=== PATIENT | female | born 1955 | race Caucasian/White ===

== ENCOUNTER 2025-03-29 04:39 | Inpatient (IN) | payer OTHER, MEDICARE ==
[~2025-03-29] VITALS: Ht 160 cm; Wt 59.6 kg
[2025-03-29] VITALS (8 sets, daily range): BP systolic 115–134; BP diastolic 57–79
[2025-03-29] MEDS ORDERED: ondansetron HCL 4 MG/2 ML VIAL IV ONE (05:00)
[2025-03-29] MEDS ORDERED: MORPHINE SULFATE 4 MG/ML VIAL IV ONE (05:00)
[2025-03-29] MEDS ORDERED: SODIUM CHLORIDE 0.9% 1,000 ML IV ONE (05:00)
[2025-03-29] MEDS ORDERED: ondansetron HCL 4 MG/2 ML VIAL ONE ×2 (05:03→10:11)
[2025-03-29 05:09] LABS: BASOPHILS 0.3 % (0.1-1.2); EOSINOPHILS 0.6 % (0.7-5.8); HEMATOCRIT 37.6 % (34.1-44.9); HEMOGLOBIN 12.6 g/dL (11.2-15.7); MCH 29.5 PG (25.6-32.2); MCHC 33.5 g/dL (32.2-35.5); MCV 88.1 fL (79.4-94.8); MONOCYTES 5.5 % (4.7-12.5); PLATELET COUNT 303 K/uL (182-369); RBC 4.27 M/uL (3.93-5.22)
[2025-03-29] MEDS ORDERED: PIPERACILLIN/TAZOBACTAM 4.5 GM in SODIUM CHLORIDE 0.9% 100 ML IV ONE (05:15)
[2025-03-29] MEDS ORDERED: CALCIUM +D & M1 EACH PO (05:22)
[2025-03-29] MEDS ORDERED: ZESTRIL20 MG PO (05:22)
[2025-03-29] MEDS ORDERED: PRAVASTATIN SOD80 MG PO (05:22)
[2025-03-29] MEDS ORDERED: EFFEXOR XR150 MG PO (05:23)
[2025-03-29] MEDS ORDERED: VAZALORE81 MG PO (05:23)
[2025-03-29] MEDS ORDERED: TRAZODONE HCL50 MG PO (05:23)
[2025-03-29 05:24] LABS: ALBUMIN 3.7 g/dL (3.4-5.0); ALBUMIN/GLOBULIN RATIO 0.97 (1.1-2.4); ANION GAP 17.1 (7-21); BILIRUBIN, TOTAL 0.3 mg/dL (0.2-1.0); BUN/CREATININE RATIO 14.28 (6.0-28.6); CALCIUM 9.2 mg/dL (8.5-10.1); CREATININE, SERUM 0.98 mg/dL (0.55-1.02); POTASSIUM 4.1 mmol/L (3.5-5.1); PROTEIN, TOTAL 7.5 g/dL (6.4-8.2)
[2025-03-29] MEDS ORDERED: LEVOTHYROXINE112 MC1 PO (05:24)
[2025-03-29] MEDS ORDERED: THIAMINE HCL100 MG PO (05:24)
[2025-03-29] MEDS ORDERED: OMEPRAZOLE20 MG PO (05:24)
[2025-03-29] MEDS ORDERED: MAGNESIUM SULFATE 2 GM/50 ML BAG IV ONE (06:00)
[2025-03-29 06:27] LABS: BILIRUBIN, URINE NEGATIVE (negative); BLOOD/HGB, URINE TRACE-L (Negative); KETONE, URINE NEGATIVE (Negative); LEUK ESTERASE, URINE NEGATIVE (negative); NITRITE, URINE NEGATIVE (negative)
[2025-03-29 06:47] LABS: BACTERIA, URINE NONE SEEN /hpf (negative); CASTS, URINE NONE SEEN \\lpf; COLLECTION TYPE, URINE CLEAN CATCH; CRYSTALS, URINE NONE SEEN (0-1+); EPITHELIAL CELLS, URINE OCCASIONAL /lpf (0-1+); REFLEX CULTURE, URINE No (No); WHITE BLOOD CELLS, URINE 0-1 /HPF (0-5)
[2025-03-29] MEDS ORDERED: ACETAMINOPHEN 650 MG SUPP PR PRN (08:30)
[2025-03-29] MEDS ORDERED: ACETAMINOPHEN 325 MG TAB PO PRN (08:30)
[2025-03-29] MEDS ORDERED: MORPHINE SULFATE 4 MG/ML VIAL IV PRN (08:30)
[2025-03-29] MEDS ORDERED: DEXTROSE 5% - LACTATED RINGERS 1,000 ML IV SCH (08:30)
[2025-03-29] MEDS ORDERED: ondansetron HCL 4 MG/2 ML VIAL IV PRN ×2 (08:30→11:45)
[2025-03-29] MEDS ORDERED: HEParin SOD (PORCINE) 5,000 UNIT/ML SDV SUB-Q SCH (09:00)
[2025-03-29] MEDS ORDERED: PANTOPRAZOLE SODIUM 40 MG/10 ML VIAL IV SCH (09:00)
[2025-03-29] MEDS ORDERED: fentaNYL citrate 100 MCG/2 ML VIAL ONE (10:10)
[2025-03-29] MEDS ORDERED: propofoL 200 MG/20 ML VIAL ONE (10:11)
[2025-03-29] MEDS ORDERED: dexmedeTOMIDine HCl 200 MCG/2 ML VIAL ONE (10:11)
[2025-03-29] MEDS ORDERED: LIDOCAINE HCL 2% 5 ML SDV ONE (10:11)
[2025-03-29] MEDS ORDERED: DEXAMETHASONE SOD PHOS 4 MG/ML VIAL ONE (10:11)
[2025-03-29] MEDS ORDERED: ACETAMINOPHEN 1,000 MG/100 ML VIAL ONE (10:21)
[2025-03-29] MEDS ORDERED: LIDOCAINE HCL 1% 30 ML SDV ONE (10:31)
[2025-03-29] MEDS ORDERED: BUPIVACAINE HCL 0.5% 30 ML VIAL ONE (10:31)
[2025-03-29] MEDS ORDERED: ROCURONIUM BROMIDE 50 MG/5 ML SYR ONE (10:56)
[2025-03-29] MEDS ORDERED: ePHEDrine sulfate 50 MG/ML AMP ONE (11:05)
[2025-03-29] MEDS ORDERED: VASOPRESSIN 20 UNITS/ML VIAL ONE (11:09)
[2025-03-29] MEDS ORDERED: SEVOFLURANE 250 ML BTL INH ONE (11:24)
[2025-03-29] MEDS ORDERED: KETOROLAC TROMETHAMINE 30 MG/ML VIAL IV PRN (11:45)
[2025-03-29] MEDS ORDERED: fentaNYL citrate 50 MCG/ML SDV IV PRN (11:45)
[2025-03-29] MEDS ORDERED: IBLOOD GLUCOSE TEST STRIP 1 EA TEST VI PRN (11:45)
[2025-03-29] MEDS ORDERED: NALOXONE HCL 0.4 MG SYR IV PRN (11:45)
[2025-03-29] MEDS ORDERED: SUGAMMADEX SODIUM 200 MG/2 ML ML ONE (11:45)
--- NOTE | 2025-03-29 12:25 | NUR ---
03/29/25 1225 Estefania Chandra 1211- PT PRESENTS TO PACU, SEMI CASRTEJON POSITION. REACTIVE TO STIMULUS, BUT NOT AWAKE. BREATHING EVEN AND NON LABORED, O2 AT 6L PER MASK. ABD SOFT, NON DISTENDED. 3 LAP SITES WITH DERMABOND AND NO DRAINAGE. LR INFUSING TO LAC IV. ALL MONITORS IN PLACE. 1220- PT WAKES TO VERBAL STIMULI, ONLY COMPLAINT IS NECK PAIN RELIEVED WITH PILLOW POSITIONING. DENIES ABD PAIN OR NAUSEA. PT FALLS BACK TO SLEEP, MOVED TO ROOM AIR, INTERMITTENT SNORING BUT BREAHTING EVEN AND NON LABORED.
[2025-03-29] MEDS ORDERED: HYDROCODONE/ACETA 5/325 TAB PO PRN (13:00)
[2025-03-29] MEDS ORDERED: KETOROLAC TROMETHAMINE 15 MG/ML VIAL IV PRN (13:00)
--- NOTE | 2025-03-29 13:13 | NUR ---
PT TO FLOOR WITH JULIO SANCHEZ. PT AWAKE AND ABLE TO AMB TO BED. REPORTING MILD NECK AND ABD PAIN. HOT PACK APPLIED TO NECK AND COLD PACK TO ABD. CALL LIGHT IN REACH. GIVEN ICE WATER. CPOX APPLIED. VS STABLE.
[2025-03-29] MEDS ORDERED: PIPERACILLIN/TAZOBACTAM 4.5 GM in SODIUM CHLORIDE 0.9% 100 ML IV SCH (14:00)
--- NOTE | 2025-03-29 14:01 | NUR ---
LAP SITES X3 TO ABD WITH DERMABOND CDI. ICE PACK TO ABD AND NECK FOR COMFORT. CPOX AND SCDS ON ORDERED. PT AWAKE AND ALERT IN ROOM AT THIS TIME. NO REQUESTS. CALL LIGHT WITHIN REACH.
--- NOTE | 2025-03-29 14:28 | NUR ---
UR CLINICAL REVIEW: 2 MN FOR VERSALUS-PER CHANGE ROOM ATTENDANT MEETS INPT FOR ACUTE APPY WITH NEED FOR PAIN CONTROL AND IV ABX MEDICARE INPT 03/29/25 @ 0823 ORDER MATCHES REG NO AUTH REQUIRED PER MEDICARE GUIDELINES DISCHARGE TO HOME WHEN STABLE
--- NOTE | 2025-03-29 16:08 | NUR ---
PT'S LAP SITES TO ABD X3 CDI. PT RATES CURRENT PAIN 2-3/10 TO ABD AND NECK AND STATES IS TOLERABLE AT THIS TIME. CALL LIGHT WITHIN REACH.
--- NOTE | 2025-03-29 16:23 | NUR ---
PT AMBULATED TO RESTROOM WITH SBA, TOLERATED WELL. DENIED DIZZINESS OR LIGHTHEADEDNESS AND URINATED YELLOW URINE. PT BACK TO BED AND CALL LIGHT WITHIN REACH. CPOX AND SCDS ON.
--- NOTE | 2025-03-29 16:33 | NUR ---
medications reconciled with patient
--- NOTE | 2025-03-29 16:59 | NUR ---
PT SITTING UP IN BED EATING HER CLEAR LIQUID DINNER. PT TOLERATING WELL. STATES PAIN TO NECK AND ABD IS 3/10 AND TOLERABLE AT THIS TIME. CPOX ON, PT ON AND 02 SATS 96%. ICE PACK TO NECK AND ABD FOR DISCOMFORT. NO REQUESTS AT THIS TIME. CALL LIGHT WITHIN REACH.
--- NOTE | 2025-03-29 18:33 | NUR ---
PT GIVEN MORPHINE ORDERED FOR PAIN TO ABD AND NECK 03/16. CALL LIGHT WITHIN REACH. NO OTHER REQUESTS AT THIS TIME.
--- NOTE | 2025-03-29 19:33 | NUR ---
CM MET WITH PATIENT REGARDING DISCHARGE PLANNING ASSESSMENT. PT PLEASANT AND COOPERATIVE WITH INTERVIEW. PT LIVES INDEPENDENTLY IN SINGLE LEVEL HOME WITH SON. SHE REPORTS THERE ARE 2-3 STAIRS TO ENTER. SHE CONTINUES TO DRIVE. 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 PT WILL START ORAL CHEMOTHERAPY THROUGH [facility] IN [facility]. ON DISCHARGE SHE WAS PROVIDED A SHOWER CHAIR, BSC, WALKER, WEDGE AND ALERT BUTTON. CM ANTICIPATES PATIENT WILL RETURN HOME UPON DISCHARGE WITHOUT NEEDS. CM WILL CONTINUE TO FOLLOW AND ASSIST WITH ANY IDENTIFIED DISCHARGE NEEDS.
--- NOTE | 2025-03-29 20:38 | NUR ---
PATIENT ASSESSMENT DONE, INJECTION DONE. PATIENT ON RA, TOLERATING CLEAR LIQUIDS. IV FLUIDS RUNNING. PATIENT UP IN BED WATCHING TV. C/O PAIN IN HER NECK, HAS BEEN USING ICE PACK OFF AND ON. DENIES HELP WITH WARMTH. PATIENT ASKING WHEN SHE CAN HAVE THE MORPHINE AGAIN. ADVISED NOT TELL 930PM. PATIENT WOULD LIKE TO WAIT UNTIL THEN, DENIES WANTING OTHER MEDICATIONS FOR PAIN. CALL LIGHT WITHIN REACH, PATIENT DENIES ANY OTHER CARES AT THIS TIME.
--- NOTE | 2025-03-29 22:08 | NUR ---
HELPED PATIENT UP TO THE BATHROOM, SBA, NO COMPLICATIONS. PAIN MEDICATION GIVEN, ANTIBIOTIC STARTED. CPOX ON, SCDS ON, BED ALARM WITHIN REACH. PATIENT IS READY TO GO TO BED. DENIES ANY OTHER CARES AT THIS TIME.
--- NOTE | 2025-03-29 23:26 | NUR ---
PATIENT CURRENTLY SLEEPING, REGULAR RESPIRATIONS NOTED.
[2025-03-30] VITALS (12 sets, daily range): BP systolic 139–158; BP diastolic 73–90
--- NOTE | 2025-03-30 00:15 | NUR ---
Pt report received from JULIO Giradlo. Pt was resting supine in bed on her right side. When I entered the room, she immediately opened her eyes and rolled partially to her back. I updated the white board and asked if there was anything she needs at this time, to which she replied, "no". As she moved again, the CPOX alarmed and the pt jumped. I explained the alarm to her and she calmed herself. Side rails up x4, call light in reach.
--- NOTE | 2025-03-30 00:43 | NUR ---
PATIENT CALLED TO USE THE BATHROOM SBA TO VOID 450ML YELLOW URINE. PATIENT IS BACK IN BED. NEW ICE PACK MADE. NO OTHER NEEDS AT THIS TIME.
--- NOTE | 2025-03-30 03:01 | NUR ---
In with pt for request for pain medication. Pt is coming back from toileting. A&O x4, reports pain in the back of her neck, states it is a 'headache' and agreed to try a hot pack for this. MSO4 4mg administered for "7 or 8" out of 10 pain in the abdomen after getting up to the bathroom.
--- NOTE | 2025-03-30 04:57 | NUR ---
PT UP TO BR WITH MINIMAL SBA TO VOID 200 ML CLEAR YELLOW URINE. GAIT STEADY. BACK TO BED, THI WELL. VS AND I&O OBTAINED. ICE PACK PROVIDED FOR ABD. NO FURTHER NEEDS. CALL LIGHT IN REACH.
[2025-03-30 05:53] LABS: BASOPHILS 0.2 % (0.1-1.2); EOSINOPHILS 0 % (0.7-5.8); HEMATOCRIT 31.5 % (34.1-44.9); HEMOGLOBIN 10.3 g/dL (11.2-15.7); LYMPHOCYTES 8.2 % (19.3-51.7); MCH 29.6 PG (25.6-32.2); MCHC 32.7 g/dL (32.2-35.5); MCV 90.5 fL (79.4-94.8); MONOCYTES 6.9 % (4.7-12.5); NEUTROPHILS 84.3 % (34.0-71.1); PLATELET COUNT 271 K/uL (182-369); RBC 3.48 M/uL (3.93-5.22)
[2025-03-30 06:10] LABS: ANION GAP 14.2 (7-21); BUN/CREATININE RATIO 10.46 (6.0-28.6); CALCIUM 8.6 mg/dL (8.5-10.1); CREATININE, SERUM 0.86 mg/dL (0.55-1.02); MAGNESIUM 2.1 mg/dL (1.8-2.4); PHOSPHORUS, INORGANIC 3.5 mg/dL (2.5-4.9); POTASSIUM 4.2 mmol/L (3.5-5.1)
--- NOTE | 2025-03-30 11:55 | NUR ---
Dr. Childs to see pt, briefly, while he is on the floor. He advised, verbally, that he will be discharging her today, gave a verbal order to advance diet as tolerated, and "please get her a walker".
--- NOTE | 2025-03-30 12:40 | NUR ---
In with pt for hourly rounding. Pt is sitting up in bed, RT Simran in with pt. Lunch tray removed, pt consumed approximately 15% of her meal (clear liquid). When offered, pt declined anything further for lunch and did not want to try any soups (she is now advance diet as tolerated to regular). Pt denies further needs at this time. Call light in reach.
--- NOTE | 2025-03-30 13:00 | NUR ---
REPORT RECIEVED FROM JULIO WADE. PATIENT SITTING UP IN BED AND IS WITHOUT ANY NEEDS AT THIS TIME. CALL LIGHT AND PERSONAL BELONGINGS ARE WITHIN REACH.
--- NOTE | 2025-03-30 14:49 | NUR ---
PATIENT MEDICATED PER EMAR. PATIENT SITTING UP IN BED WATCHING TV. PATIENT ASSISTED TO BATHROOM VIA SBA WITH THE FWW. HEAT PACK PROVIDED. SCD'S ON. PATIENT WITHOUT FURTHER NEEDS AT THIS TIME. CALL LIGHT AND PERSONAL BELONGINGS ARE WITHIN REACH.
--- NOTE | 2025-03-30 15:21 | NUR ---
ALERT AND ORIENTED IN BED. DC PLAN TO RETURN TO HOME WHEN MEDICALLY READY. NO KNOWN CM NEEDS WHEN ASKED.
--- NOTE | 2025-03-30 15:46 | NUR ---
PATIENT RESTING IN BED ON HER PHONE AND WATCHING TV. PATIENT REPORTS DECREASED IN PAIN FOR A 2/10. PATIENT WITHOUT ANY NEEDS AT THIS TIME. CALL LIGHT AND PERSONAL BELONGINGS ARE WITHIN REACH.
--- NOTE | 2025-03-30 17:52 | NUR ---
PATIENT SITTING UP IN BED WITH VISITOR AT BEDSIDE. PATIENT REPORTING 5/10 PAIN. PATIENT WITHOUT FURTHER NEEDS AT THIS TIME. CALL LIGHT AND PERSONAL BELONGINGS ARE WITHIN REACH.
--- NOTE | 2025-03-30 18:06 | NUR ---
PATIENT MEDICATED PER EMAR. IV FLUSHED WITH 10ML OF NS, DRESSING IS INTACT. LR INFUSING AT 85ML/HR CONTINUOUS. PATIENT BACK IN BED. CPOX AT BEDSIDE. FRESH ICE WATER PROVIDED. PATIENT REQUESTING TO TAKE A BREAK FROM SCD'S. PATIENT WITHOUT FURTHER NEEDS AT THIS TIME. CALL LIGHT AND PERSONAL BELONGINGS ARE WITHIN REACH.
--- NOTE | 2025-03-30 18:55 | NUR ---
PATIENT AMBULATED HALLWAYS 1.5 TIMES WITH SBA AND FWW. PATIENT REPORTED FEELING NO PAIN OR DIZZINESS WHILE WALKING. PATIENT RETURNED TO BED.
--- NOTE | 2025-03-30 19:26 | NUR ---
RECEIVED REPORT FROM JULIO BRENNAN. PT RESTING IN BED. ASSISTED TO BR, SBA FOR LINE MANAGEMENT. VOIDS WNL. CALL LIGHT WITHIN REACH.
--- NOTE | 2025-03-30 20:00 | NUR ---
PT RESTING IN BED. ASSISTED TO BR-PT REPORTS URGENCY AND DRIBBLING. PADS IN PLACE. REPORTS 3/10 ABD PAIN, PT WANTS TO WAIT UNTIL PRN TORADOL AVAILABLE AND AVOID MORPHINE. ICE PACK IN PLACE TO 3 ABD LAP SITES. LSC, DIM TO RIGHT BASE. HRR. BT HYPO, ABD SLIGHTLY TENDER. ABD SLIGHTLY DISTENDED, DENIES PASSING FLATUS. LBM 03/29. 3 LAP SITES TO ABD-LLQ LAP SITE W/ BLOODY DRNG-BANDAID APPLIED. LARGE BRUISE TO RLQ. D5LR INFUSING TO LAC IV AT 100MLS/HR. FRESH ICE WATER PROVIDED. CALL LIGHT WITHIN REACH.
--- NOTE | 2025-03-30 20:30 | NUR ---
call light answered, pt reports iv site "leaking and there is a bump". iv site appears infiltrated and leaking noted-pt has d5lr infusing. pt denies pain at iv site, no reddness noted.fluids stopped and this rn spoke to keli in telepharmacy regarding need for potential interventions before dc'ing iv site-no interventions given as far as medications prior to removing current iv. also no specific interventions r/t heat/cold compress. discussed w/ primary rn crystal-iv dc'd and catheter tip intact. pressure held and left arm elevated w/ pillow. theresa kennedy in room to start new iv.
--- NOTE | 2025-03-30 21:30 | NUR ---
PT HAS NEW IV TO RFA-D5LR RESTARTED. MEDICATED W/ PRN TORADOL FOR ABD PAIN. PT AMBULATED TO BR W/ SBA. NEW GOWN APPLIED AND NEW DRSG TO [facility] LAP SITE-KESHIA AND GRISELADEJENNIFFER FOR BLOODY DRNG NOTED.
--- NOTE | 2025-03-30 21:30 | NUR ---
PT UP USING BR IND. SPOUSE AT BEDSIDE.
--- NOTE | 2025-03-30 23:45 | NUR ---
PT SLEEPING SOUNDLY. APPEARS COMFORTABLE.
--- NOTE | 2025-03-31 01:45 | NUR ---
DX: 03/29 LAP APPY. MIN PAIN, PRN TORADOL & NORCO, WEANING IV MORPHINE USE. THI GEN DIET. NEGATIVE FLATUS. PLAN TO D/C WED03/31.
--- NOTE | 2025-03-31 03:06 | NUR ---
SLEEPING SOUNDLY. APPEARS COMFORTABLE.
[2025-03-31 05:42] VITALS: BP 166/78
--- NOTE | 2025-03-31 05:51 | NUR ---
PT UP TO BR W/ COMMUNICATIONS FIELD TECHNICIAN. NOTED BLOODY DRNG ON GOWN-LLQ LAP SITE W/ MODERATE AMT BLOODY DRNG. AREA CLEANSED AND STERI STRIPS APPLIED + GUAZE + TEGADERM. DENIES PAIN THIS AM. BT REMAIN HYPOACTIVE. DENIES FLATUS. ABD MILDLY DISTENDED, MILDLY TENDER. CALL LIGHT WITHIN REACH.
[2025-03-31 05:52] VITALS: BP 166/78
--- NOTE | 2025-03-31 06:27 | NUR ---
DR. WHITTEN NOTIFIED OF [facility] SITE ONGOING DRNG AND STERI STRIP PLACEMENT. NO NEW ORDERS. WILL SEE THIS AM.
--- NOTE | 2025-03-31 08:12 | NUR ---
Admin toradol 15mg iv at this time for reports of 3/10 abdominal pain. Patient denies passing flatus.
[2025-03-31 09:19] VITALS: BP 145/81
[2025-03-31 09:30] VITALS: BP 145/81
--- NOTE | 2025-03-31 10:35 | NUR ---
PT CALL LIGHT ON - REQUESTING TO USE BATHROOM. SBA WITH LINES/TUBES FOR SAFETY. PT AMBULATED WITH STEADY GAIT.
--- NOTE | 2025-03-31 11:06 | NUR ---
Patient reporting nausea post ambulation to bathroom. Admin zofran 8mg iv at this time. Patient reports she did not eat much this morning after receiving po pain medication. Patient encouraged to eat a snack when she can tolerate-she reports her understanding. Patient reports she has been burping lots, no flatus as of yet. Call light within reach.
[2025-03-31] MEDS ORDERED: IBUPROFEN 600 MG TAB PO PRN (13:00)
[2025-03-31 13:55] VITALS: BP 155/81
[2025-03-31 14:00] VITALS: BP 155/81
[2025-03-31] MEDS ORDERED: HYDROCODON-ACE1 EA11 PO (15:14)
[2025-03-31] MEDS ORDERED: LEVOFLOXACIN500 MG PO (15:14)
[2025-03-31] MEDS ORDERED: ONDANSETRON ODT4 MG PO (15:16)
== END 2025-03-31 16:30 | disposition home or self-care (01) | DRG 398 ==
LOC: ED 04:39 → MS 08:23
PROVIDERS: Family Medicine; ADMIT Surgery; ATTEND Surgery
PROC: 3E03329 Introduction of Other Anti-infective into Peripheral Vein, Percutaneous Approach (ICD-10-PCS; 2025-03-29)
PROC: 0DTJ4ZZ Resection of Appendix, Percutaneous Endoscopic Approach (ICD-10-PCS; principal; 2025-03-29 10:20)
DX: K35.80 Unspecified acute appendicitis (principal); C34.31 Malignant neoplasm of lower lobe, right bronchus or lung; I10 Essential (primary) hypertension; E03.9 Hypothyroidism, unspecified; F32.A Depression, unspecified; E78.00 Pure hypercholesterolemia, unspecified; F41.9 Anxiety disorder, unspecified; Z90.2 Acquired absence of lung [part of]; Z79.890 Hormone replacement therapy; Z79.82 Long term (current) use of aspirin; Z92.3 Personal history of irradiation
CPT/HCPCS: 00840; 36415; 71045; 74177; 80048; 80053; 81001; 83605; 83690; 83735; 84100; 85025; 85060; 94762; J0131; J1100; J1644; J1885; J2003; J2270; J2405; J2470; J2543; J2704; J3010; J3475; J3490; J7030; J7121; Q9967

== ENCOUNTER 2025-05-17 11:01 | Emergency (ER) | payer OTHER, MEDICARE ==
[~2025-05-17] VITALS: Ht 160 cm; Wt 56.0 kg
[~2025-05-17 11:01] MED LIST: CALCIUM +D & M1 EACH PO; EFFEXOR XR150 MG PO; HYDROCODON-ACE1 EA11 PO; LEVOFLOXACIN500 MG PO; LEVOTHYROXINE112 MC1 PO; OMEPRAZOLE20 MG PO; ONDANSETRON ODT4 MG PO; PRAVASTATIN SOD80 MG PO; THIAMINE HCL100 MG PO; TRAZODONE HCL50 MG PO; VAZALORE81 MG PO; ZESTRIL20 MG PO
[2025-05-17] MEDS ORDERED: TAGRISSO80 MG PO (11:17)
[2025-05-17 11:30] LABS: BASOPHILS 0.5 % (0.1-1.2); EOSINOPHILS 2.4 % (0.7-5.8); LYMPHOCYTES 13.3 % (19.3-51.7); MCH 28.6 PG (25.6-32.2); MCHC 32.4 g/dL (32.2-35.5); MCV 88.2 fL (79.4-94.8); MONOCYTES 9.4 % (4.7-12.5); NEUTROPHILS 74.1 % (34.0-71.1); RBC 4.51 M/uL (3.93-5.22)
[2025-05-17 11:54] LABS: ALT (SGPT) 15.0 U/L (14-59); AST (SGOT) 14.0 U/L (15-37); GLOMERULAR FILTRATION RATE,EST 45.0 mL/min (>60); PROTEIN, TOTAL 7.6 g/dL (6.4-8.2); UREA NITROGEN 11.0 mg/dL (7-18)
[2025-05-17] MEDS ORDERED: BENZONATATE100 MG PO (14:18)
[2025-05-17 14:35] VITALS: BP 117/81
== END 2025-05-17 14:45 | disposition home or self-care (01) ==
LOC: ED 11:01
PROVIDERS: Emergency Medicine
DX: R06.02 Shortness of breath (principal); R05.3 Chronic cough; R91.1 Solitary pulmonary nodule; J90 Pleural effusion, not elsewhere classified; I10 Essential (primary) hypertension; E03.9 Hypothyroidism, unspecified; Z79.82 Long term (current) use of aspirin; Z79.890 Hormone replacement therapy; Z79.899 Other long term (current) drug therapy
CPT/HCPCS: 36415; 71045; 71260; 80053; 83880; 85025; 99285-25; Q9967